=== PATIENT | female | born 1995 | race Caucasian/White ===

== ENCOUNTER 2020-06-22 13:54 | Emergency (ER) | payer OTHER, MEDICAID ==
[~2020-06-22] VITALS: Ht 160 cm; Wt 72.2 kg
[2020-06-22] MEDS ORDERED: ONDANSETRON 4MG ODT PO ONE (19:30)
[2020-06-22] MEDS ORDERED: IBUPROFEN 600MG TABLET PO ONE (19:30)
[2020-06-22 19:41] LABS: CLARITY URINE CLOUDY (CLEAR); COLOR URINE YELLOW (YELLOW); KETONES URINE NEGATIVE (NEGATIVE); LEUKOCYTE ESTERASE URINE NEGATIVE (NEGATIVE); NITRITE URINE NEGATIVE (NEGATIVE); OCCULT BLOOD URINE NEGATIVE (NEGATIVE); PH URINE 5.5 (4.5-8.0); PROTEIN URINE NEGATIVE (NEGATIVE); UROBILINOGEN URINE 0.2 E.U./dL (0.2-1.0)
[2020-06-22 20:11] LABS: BASOPHILS % 0.4 % (0.0-2.0); EOSINOPHILS % 0.5 % (0.0-5.0); HEMATOCRIT. 38.6 % (36.0-48.0); HEMOGLOBIN. 13.1 g/dL (12.0-16.0); LYMPHOCYTES % 20.1 % (20.0-50.0); MEAN CORPUSCULAR HEMOGLOBIN 30.6 pg (28.0-32.0); MEAN CORPUSCULAR VOLUME 89.9 fL (81.0-99.0); MEAN PLATELET VOLUME 8.9 fl (7.4-10.4); MONOCYTES % 10.8 % (2.0-8.0); NEUTROPHILS % 68.2 % (40.0-76.0); PLATELET 226 x1000/uL (130-400); RED BLOOD CELL COUNT 4.29 mill/uL (4.2-5.4); RED CELL DISTRIBUTION WIDTH 13.3 % (11.6-14.6)
[2020-06-22 20:16] LABS: CHLORIDE 107 mEq/L (98-107)
[2020-06-22] MEDS ORDERED: IBUP-2028 MT (23:00)
[2020-06-22 23:30] VITALS: BP 95/47
== END 2020-06-22 23:54 | disposition home or self-care (01) ==
LOC: ER 13:54
DX: B34.9 Viral infection, unspecified (principal)
CPT/HCPCS: 36415; 71045; 80053; 81003; 81025; 85025; 87070; 87430; 99285; Q0162; Z7610

== ENCOUNTER 2020-11-28 21:05 | Emergency (ER) | payer MEDICAID, OTHER ==
[~2020-11-28] VITALS: Ht 165.1 cm; Wt 59.0 kg
[~2020-11-28 21:05] MED LIST: IBUP-2028 MT
[2020-11-29] VITALS: BP 118/73
[2020-11-29] MEDS ORDERED: IBUP-2029 PO (00:25)
== END 2020-11-29 01:00 | disposition home or self-care (01) ==
LOC: ER 21:05
DX: J06.9 Acute upper respiratory infection, unspecified (principal); Z20.822 Contact with and (suspected) exposure to COVID-19; Z86.16 Personal history of COVID-19
CPT/HCPCS: 81025; 87804; 99283; C9803; U0003; U0005

== ENCOUNTER 2021-04-30 17:13 | Emergency (ER) | payer OTHER ==
[~2021-04-30] VITALS: Ht 154.9 cm; Wt 66.0 kg
[~2021-04-30 17:13] MED LIST changes: +IBUP-2029 PO
[2021-04-30 17:19] VITALS: BP 134/83
[2021-04-30] MEDS ORDERED: ONDANSETRON 4MG ODT PO ONE ×2 (17:30→23:45)
[2021-04-30] MEDS ORDERED: IBUPROFEN 800MG TABLET PO ONE ×2 (17:30→23:45)
[2021-04-30 20:48] LABS: HEMOGLOBIN 13.5 g/dL (12.0-16.0); MEAN CORPUSCULAR VOLUME 89.7 fL (81.0-99.0); PLATELET 275 x1000/uL (130-400); RED BLOOD CELL COUNT 4.35 mill/uL (4.2-5.4); RED CELL DISTRIBUTION WIDTH 13.7 % (11.6-14.6)
[2021-04-30 20:54] LABS: CHLORIDE 106 mEq/L (98-107)
[2021-04-30 21:01] LABS: HCG SCREEN NEGATIVE
[2021-05-01] MEDS ORDERED: IBUP-2029 MT (00:41)
[2021-05-01] MEDS ORDERED: ONDA4TAB5 MT (00:41)
== END 2021-05-01 00:56 | disposition home or self-care (01) ==
LOC: ER 17:13
DX: R10.9 Unspecified abdominal pain (principal); N92.0 Excessive and frequent menstruation with regular cycle; Z98.51 Tubal ligation status
CPT/HCPCS: 36415; 80048; 81025; 84703; 85027; 99283

== ENCOUNTER 2022-08-04 22:48 | Emergency (ER) | payer MEDICAID, OTHER ==
[~2022-08-04] VITALS: Ht 165.1 cm; Wt 68.5 kg
[~2022-08-04 22:48] MED LIST changes: +IBUP-2029 MT; +ONDA4TAB5 MT
[2022-08-04 23:09] VITALS: BP 122/71
[2022-08-04 23:17] LABS: BASOPHILS % 0.6 % (0.0-2.0); EOSINOPHILS % 2.4 % (0.0-5.0); HEMATOCRIT. 37.7 % (36.0-48.0); HEMOGLOBIN. 12.7 g/dL (12.0-16.0); LYMPHOCYTES % 26.9 % (20.0-50.0); MEAN CORPUSCULAR HEMOGLOBIN 29.2 pg (28.0-32.0); MEAN CORPUSCULAR VOLUME 86.8 fL (81.0-99.0); MEAN PLATELET VOLUME 8.6 fl (7.4-10.4); MONOCYTES % 5.1 % (2.0-8.0); PLATELET 271 x1000/uL (130-400); RED BLOOD CELL COUNT 4.34 mill/uL (4.2-5.4); RED CELL DISTRIBUTION WIDTH 14.5 % (11.6-14.6)
[2022-08-04 23:21] LABS: CHLORIDE 109 mEq/L (98-107)
== END 2022-08-05 02:40 | disposition home or self-care (01) ==
LOC: ER 22:48
DX: N92.0 Excessive and frequent menstruation with regular cycle (principal); Z98.51 Tubal ligation status
CPT/HCPCS: 36415; 76856; 80053; 81025; 85025; 86850; 86900; 99284; L3670